=== PATIENT | female | born 1965 | race Caucasian/White ===

== ENCOUNTER 2017-03-15 05:16 | Emergency (ER) | payer OTHER ==
[~2017-03-15] VITALS: Ht 157.5 cm; Wt 77.3 kg
[2017-03-15 05:20] VITALS: TEMP 36.4; Ht 157.5 cm; Wt 77.3 kg
--- NOTE | 2017-03-15 05:37 | EMERGENCY ROOM VISIT NOTE ---
History First contact with patient: 05:23 Chief Complaint: ABDOMINAL PAIN Stated Complaint: ABD PAIN, NAUSEA Nursing Triage Summary: Epigastric pain intermttently for the last 5 days. Pain today started @ 0500. History of Present Illness The patient is a 51 year old female who presents to the Emergency Room with complaints of intermittent abdominal pain and nausea for the past 4 days. The patient states that her pain began on Saturday after eating a large meal. She states that the pain was so severe at that time, that she was doubled over. She states that the pain has improved since then, but is persistent. She rates her current discomfort a 7/10. The pain is located in her upper abdomen and radiates into the back. She states the pain seems to be worsened by eating. She denies any other aggravating or alleviating factors. She has not vomited. She states that her stools have been slightly more loose than usual. She denies urinary symptoms, chest pain or shortness of breath. The patient reports a history of elevated liver enzymes and GERD. She denies any history of abdominal surgeries. Review of Systems A complete 10 point review of systems was reviewed with the patient with pertinent positives and negatives as per history of present illness. All else were negative. Past Medical/Surgical History Surgical Problems: (1) H/O: hysterectomy Family History Cancer Social History Smoking Status: Never Smoker Alcohol Use: occasionally Marital Status: Housing Status: lives with family Occupation Status: unemployed Current/Historical Medications Scheduled Sertraline (Zoloft), 1 TAB PO DAILY Allergies Coded Allergies: Penicillins (Verified Allergy, Unknown, 03/15/17) Sulfa Drugs (Verified Allergy, Unknown, 03/15/17) Physical Exam Vital Signs Date Time Temp Pulse Resp B/P (MAP) Pulse Ox O2 Delivery O2 Flow Rate FiO2 03/15/17 05:58 60 03/15/17 05:56 64 22 115/79 100 Room Air 03/15/17 05:20 36.4 82 16 135/92 100 Room Air Physical Exam VITALS: Vitals are noted on the nurse's note and reviewed by myself. Vital signs stable. GENERAL: This is a 51-year-old female, tearful, in no acute distress, well- developed well-nourished. HEART: Regular rate and rhythm without murmurs gallops or rubs. LUNGS: Clear to auscultation bilaterally without wheezes, rales or rhonchi. ABDOMEN: Positive bowel sounds x 4. Soft, minimal tenderness in the epigastric region. No guarding or rebound tenderness. Gupta sign negative. NEURO: Patient was alert and oriented to person place and time. Medical Decision & Procedures Laboratory Results 03/15/17 05:30 Red Blood Count 5.43, Mean Corpuscular Volume 84.3, Mean Corpuscular Hemoglobin 29.8, Mean Corpuscular Hemoglobin Concent 35.4, Mean Platelet Volume 9.6, Neutrophils (%) (Auto) 55.4, Lymphocytes (%) (Auto) 37.3, Monocytes (%) (Auto) 5.2, Eosinophils (%) (Auto) 1.3, Basophils (%) (Auto) 0.7, Neutrophils # (Auto) 3.80, Lymphocytes # (Auto) 2.56, Monocytes # (Auto) 0.36, Eosinophils # (Auto) 0.09, Basophils # (Auto) 0.05 03/15/17 05:30 Test 03/15/17 05:30 White Blood Count 6.87 K/uL (4.8-10.8) Red Blood Count 5.43 M/uL (4.2-5.4) Hemoglobin 16.2 g/dL (12.0-16.0) Hematocrit 45.8 % (37-47) Mean Corpuscular Volume 84.3 fL (80-100) Mean Corpuscular Hemoglobin 29.8 pg (25-34) Mean Corpuscular Hemoglobin Concent 35.4 g/dl (32-36) Platelet Count 229 K/uL (130-400) Mean Platelet Volume 9.6 fL (7.4-10.4) Neutrophils (%) (Auto) 55.4 % Lymphocytes (%) (Auto) 37.3 % Monocytes (%) (Auto) 5.2 % Eosinophils (%) (Auto) 1.3 % Basophils (%) (Auto) 0.7 % Neutrophils # (Auto) 3.80 K/uL (1.4-6.5) Lymphocytes # (Auto) 2.56 K/uL (1.2-3.4) Monocytes # (Auto) 0.36 K/uL (0.11-0.59) Eosinophils # (Auto) 0.09 K/uL (0-0.5) Basophils # (Auto) 0.05 K/uL (0-0.2) RDW Standard Deviation 39.9 fL (36.4-46.3) RDW Coefficient of Variation 13.1 % (11.5-14.5) Immature Granulocyte % (Auto) 0.1 % Immature Granulocyte # (Auto) 0.01 K/uL (0.00-0.02) Anion Gap 7.0 mmol/L (3-11) Est Creatinine Clear Calc Drug Dose 79.1 ml/min Estimated GFR () 97.5 Estimated GFR (Non- 84.1 BUN/Creatinine Ratio 16.1 (10-20) Calcium Level 9.2 mg/dl (8.5-10.1) Total Bilirubin 0.7 mg/dl (0.2-1) Direct Bilirubin 0.1 mg/dl (0-0.2) Aspartate Amino Transf (AST/SGOT) 22 U/L (15-37) Alanine Aminotransferase (ALT/SGPT) 54 U/L (12-78) Alkaline Phosphatase 97 U/L (45-117) Troponin I < 0.015 ng/ml (0-0.045) Total Protein 7.5 gm/dl (6.4-8.2) Albumin 4.1 gm/dl (3.4-5.0) Lipase 222 U/L (73-393) Medications Administered Medications (Trade) Dose Ordered Sig/Denise Route Start Time Stop Time Status Last Admin Dose Admin Sodium Chloride 1,000 ml @ 999 mls/hr Q1H1M STAT IV 03/15/17 05:40 03/15/17 06:40 03/15/17 06:03 999 MLS/HR Ondansetron HCl (Zofran Inj) 4 mg NOW STAT IV 03/15/17 05:40 03/15/17 05:43 DC 03/15/17 06:03 4 MG Morphine Sulfate (MoRPHine SULFATE INJ) 4 mg NOW STAT IV 03/15/17 05:40 03/15/17 05:43 DC 03/15/17 06:03 4 MG ECG Rate (beats per minute): 60 Rhythm: normal sinus Findings: no acute ischemic change, no ectopy Change: no significant change ED Course The patient was evaluated as above. Labs were drawn and IV access was obtained. Patient was medicated with 4 mg morphine IV, 4 mg Zofran IV and 1 L normal saline solution. Patient was feeling better after this treatment. Care of the patient was signed out to Shireen Tilley PA-C at change of shift. Medical Decision Differential diagnosis includes cholecystitis, pancreatitis, kidney stone, pyelonephritis, colitis, gastroenteritis, among others. The patient is a 51-year-old female who presents today complaining of upper abdominal pain intermittently for the past 5 days. Labs revealed no leukocytosis, anemia or concerning electrolyte abnormalities. Troponin was not elevated. EKG showed a normal sinus rhythm without any evidence of ischemia. Abdominal x-ray was read by radiology with no acute findings. Care of this patient was signed out to a Shireen Tilley PA-C at change of shift pending the gallbladder ultrasound. Please see her note for results and patient disposition. Impression Primary Impression: Upper abdominal pain Departure Information Referrals Radhika Ordonez M.D. (PCP) Patient Instructions My [facility]
[2017-03-15] MEDS ORDERED: MoRPHine SULFATE 4 MG/ML 1 ML CARP\\VIAL IV STA (05:40)
[2017-03-15] MEDS ORDERED: SODIUM CHLORIDE 0.9% 1000ML 1,000 ML IV STA (05:40)
[2017-03-15] MEDS ORDERED: ONDANSETRON INJ 2 MG/ML 2 ML VIAL IV STA (05:40)
[2017-03-15 05:44] LABS: BASO % 0.7 %; BASO ABS # 0.05 K/uL (0-0.2); COMPLETE YES; EOS % 1.3 %; HEMATOCRIT 45.8 % (37-47); IG% 0.1 %; LYMPH % 37.3 %; LYMPH ABS # 2.56 K/uL (1.2-3.4); MEAN CELL VOLUME 84.3 fL (80-100); MEAN CORPUSCULAR HEMOGLOBIN 29.8 pg (25-34); MEAN CORPUSCULAR HGB CONC 35.4 g/dl (32-36); MEAN PLATELET VOLUME 9.6 fL (7.4-10.4); MONO % 5.2 %; NEUT % 55.4 %; PLATELET COUNT 229 K/uL (130-400); RED BLOOD COUNT 5.43 M/uL (4.2-5.4); WHITE BLOOD COUNT 6.87 K/uL (4.8-10.8)
[2017-03-15 06:02] LABS: ALT/SGPT 54 U/L (12-78); AST/SGOT 22 U/L (15-37); BLOOD UREA NITROGEN 13 mg/dl (7-18); BUN/CREATININE RATIO 16.1 (10-20); CALCIUM 9.2 mg/dl (8.5-10.1); CARBON DIOXIDE 23 mmol/L (21-32); CHLORIDE 110 mmol/L (98-107); CREATININE 0.81 mg/dl (0.60-1.20); GLUCOSE 96 mg/dl (70-99); POTASSIUM 3.5 mmol/L (3.5-5.1); SODIUM 140 mmol/L (136-145)
[2017-03-15 06:07] LABS: ALKALINE PHOSPHATASE 97 U/L (45-117)
[2017-03-15] MEDS ORDERED: SERT25TA PO (06:10)
--- NOTE | 2017-03-15 06:38 | DIAGNOSTIC IMAGING REPORT ---
ABDOMEN 2VIEW W/PA CHEST RTN CLINICAL HISTORY: epigastric pain, nausea pain. Nausea. COMPARISON STUDY: No previous studies for comparison. FINDINGS: The soft tissues, psoas shadows, renal outlines and intestinal gas pattern appear normal. There is no evidence for bowel obstruction. There is no evidence for free intraperitoneal air. No abnormal abdominal calcifications are seen. A frontal view of the chest was performed and is unremarkable. IMPRESSION: Normal study. The above report was generated using voice recognition software. It may contain grammatical, syntax or spelling errors. Electronically signed by: Rancho Tilley M.D. 03/15/2017 6:37 AM Dictated Date/Time: 03/15/2017 6:36 AM
--- NOTE | 2017-03-15 07:47 | DIAGNOSTIC IMAGING REPORT ---
ULTRASOUND RIGHT UPPER QUADRANT ABDOMEN CLINICAL HISTORY: Nausea. Epigastric abdominal pain. COMPARISON STUDY: No priors. TECHNIQUE: Real-time, grayscale, and color flow sonography of the right upper quadrant of the abdomen was performed. Images are reviewed in the transverse and longitudinal planes. FINDINGS: Liver: The liver is enlarged, measuring over 19 cm in length. The liver demonstrates heterogeneously increased echotexture consistent with hepatic steatosis. There is no intrahepatic biliary ductal dilatation. The main portal vein is patent. An 8 mm well-circumscribed hyperechoic lesion the right lobe is typical in appearance for a small hemangioma. Gallbladder: A 2 mm gallbladder polyp is incidentally noted. The gallbladder is otherwise normal in appearance. No gallstones are identified. There is no gallbladder wall thickening or pericholecystic fluid. A sonographic Gupta's sign is reportedly absent. The common bile duct measures up to 0.3 cm in diameter. Pancreas: Visualized portions of the pancreatic head and body are normal in appearance. The splenic vein is patent. Right kidney: Survey images of the right kidney demonstrate normal size and echotexture. There is no hydronephrosis. Ascites: None. IMPRESSION: 1. No acute sonographic abnormality is identified in the right upper quadrant. No gallstones are seen. 2. Hepatomegaly and hepatic steatosis. 3. A subcentimeter hyperechoic lesion in the liver is typical appearance for a small hemangioma. 4. A 2 mm gallbladder polyp is incidentally noted. Electronically signed by: Villa Berger M.D. 03/15/2017 7:46 AM Dictated Date/Time: 03/15/2017 7:32 AM
--- NOTE | 2017-03-15 08:05 | EMERGENCY ROOM VISIT NOTE ---
ED Visit Note This patient's case was signed out to me by Bee Smith at the end of her shift. At this point all labs are reviewed with the patient and were unremarkable. She had an abdomen x-ray which was also normal. An ultrasound of the right upper quadrant is pending. ULTRASOUND RIGHT UPPER QUADRANT ABDOMEN CLINICAL HISTORY: Nausea. Epigastric abdominal pain. COMPARISON STUDY: No priors. TECHNIQUE: Real-time, grayscale, and color flow sonography of the right upper quadrant of the abdomen was performed. Images are reviewed in the transverse and longitudinal planes. FINDINGS: Liver: The liver is enlarged, measuring over 19 cm in length. The liver demonstrates heterogeneously increased echotexture consistent with hepatic steatosis. There is no intrahepatic biliary ductal dilatation. The main portal vein is patent. An 8 mm well-circumscribed hyperechoic lesion the right lobe is typical in appearance for a small hemangioma. Gallbladder: A 2 mm gallbladder polyp is incidentally noted. The gallbladder is otherwise normal in appearance. No gallstones are identified. There is no gallbladder wall thickening or pericholecystic fluid. A sonographic Gupta's sign is reportedly absent. The common bile duct measures up to 0.3 cm in diameter. Pancreas: Visualized portions of the pancreatic head and body are normal in appearance. The splenic vein is patent. Right kidney: Survey images of the right kidney demonstrate normal size and echotexture. There is no hydronephrosis. Ascites: None. IMPRESSION: 1. No acute sonographic abnormality is identified in the right upper quadrant. No gallstones are seen. 2. Hepatomegaly and hepatic steatosis. 3. A subcentimeter hyperechoic lesion in the liver is typical appearance for a small hemangioma. 4. A 2 mm gallbladder polyp is incidentally noted. Electronically signed by: Villa Berger M.D. 03/15/2017 7:46 AM Dictated Date/Time: 03/15/2017 7:32 AM The status of this report is Signed. Draft = Not yet reviewed or approved by Radiologist. The patient was informed of the findings. The patient admits that she has a Prilosec prescription at home which she has not been taking. I told the patient to start taking the Prilosec as well as Zantac daily. The patient verbalized understanding. The patient was discharged home in stable condition. DIAGNOSIS: Upper abdominal pain TREATMENT PLAN: Take Prilosec daily as prescribed. Also recommend over-the- counter Zantac 150 mg at bedtime. Avoid spicy or acidic foods. Advance diet slowly as tolerated. Push fluids. Take Zofran as needed for nausea. If symptoms are not improving in 2 days recommend follow-up with your family doctor.
[2017-03-15] MEDS ORDERED: ONDA4TAB10 SL (08:06)
[2017-03-15 08:21] VITALS: BP 112/70; PULSE 59; O2SAT 97
== END 2017-03-15 08:22 | disposition home or self-care (01) ==
LOC: C.EDB 05:18 → C.EDA 08:22
DX: R10.10 Upper abdominal pain, unspecified (principal)